=== PATIENT | female | born 1985 ===

== ENCOUNTER 2016-11-29 19:54 | Emergency (ER) | payer SELFPAY ==
[2016-11-29 19:54] VITALS: BMI 33.0
[2016-11-29] MEDS ORDERED: Dexamethasone 10 MG in Sodium Chloride 0.9% 50 ML IV ONE (21:44)
[2016-11-29] MEDS ORDERED: Sodium Chloride 0.9% 1,000 ML IV STA (21:44)
--- NOTE | 2016-11-29 21:51 | ED PDOC ---
HPI: CCC, URI, Sore Throat Time Seen by Provider: 11/29/16 21:38 Chief Complaint (Nursing): ENT Problem Chief Complaint (Provider): Sore Throat History Per: Patient History/Exam Limitations: no limitations Have you had recent travel within the past 21 days to any of the following countries: [place], [place], [place] or [place]?: No Onset/Duration Of Symptoms: Days (x3 1/2 days) Current Symptoms Are (Timing): Still Present Location Of Pain: Throat Associated Symptoms: Sore Throat, Neck Pain. denies: Fever, Cough Severity: Moderate Additional Complaint(s): Wander Wei is a 31 year old female, with no pertinent past medical history, who presents to the emergency department for the evaluation of a sore throat, that the patient has been experiencing for the past x3 1/2 days. Pain is described as a burning sensation that radiates throughout her throat. Associated difficulty swallowing with eating and drinking is reportedly also present. Denies a cough or fever. PMD: none specified Past Medical History Reviewed: Historical Data, Nursing Documentation, Vital Signs Vital Signs: Last Vital Signs Temp 98.1 F 11/29/16 21:08 Pulse 86 11/29/16 21:08 Resp 18 11/29/16 21:08 BP 120/71 11/29/16 21:08 Pulse Ox 100 11/29/16 22:02 - Medical History PMH: Asthma - Family History Family History: States: Unknown Family Hx - Social History Current smoker - smoking cessation education provided: Yes (<10 cigarettes daily ) Alcohol: None Drugs: Denies - Home Medications Home Medications: Ambulatory Orders Medication Instructions Recorded Clindamycin [Cleocin] 1 tab PO QID #40 cap 11/30/16 Ibuprofen [Motrin] 600 mg PO Q8 PRN #21 tab 11/30/16 - Allergies Allergies/Adverse Reactions: Allergies Allergy/AdvReac Type Severity Reaction Status Date / Time Penicillins Allergy RASH Verified 08/15/16 20:39 Review of Systems Constitutional: Negative for: Fever ENT: Positive for: Throat Pain (difficulty swallowing food/liquid) Respiratory: Negative for: Cough Physical Exam - Reviewed Nursing Documentation Reviewed: Yes Vital Signs Reviewed: Yes - Physical Exam Appears: Positive for: Non-toxic, No Acute Distress Skin: Positive for: Normal Color, Warm, Dry ENT: Positive for: Normal ENT Inspection, Pharyngeal Erythema (diffuse erythema of posterior pharynx). Negative for: Tonsillar Exudate, Tonsillar Swelling Neurologic/Psych: Positive for: Alert, Oriented - ECG O2 Sat by Pulse Oximetry: 100 (RA) Pulse Ox Interpretation: Normal Medical Decision Making Medical Decision Makin:38 Initial Impression: throat infection Initial Plan: * Tift * Rapid Strep Group A Antigen * Urine * Decadron Inj 10mg IV * Sodium Chloride 0.9% 1,000ml IV at 1,000mls/hr * Toradol 15mg IVP * Reevaluation Scribe Attestation: Documented by Guero Echeverria, training under Karolina Sue, acting as a scribe for Yu Machado PA-C. Provider Scribe Attestation: All medical record entries made by the Scribe were at my direction and personally dictated by me. I have reviewed the chart and agree that the record accurately reflects my personal performance of the history, physical exam, medical decision making, and the department course for this patient. I have also personally directed, reviewed, and agree with the discharge instructions and disposition. Disposition - Clinical Impression Clinical Impression: Sore throat - Patient ED Disposition Is Patient to be Admitted: Transfer of Care - Disposition Disposition: Transfer of Care Disposition Time: 00:00 Condition: FAIR Prescriptions: Clindamycin [Cleocin] 1 tab PO QID #40 cap Ibuprofen [Motrin] 600 mg PO Q8 PRN #21 tab PRN Reason: Sore Throat Forms: [facility] ED School/Work Excuse Patient Signed Over To: Annmarie Parmar Handoff Comments: pending strep/mono
[2016-11-30 01:18] VITALS: BP 124/69; PULSE 79; RESP 15; TEMP 98.3; O2SAT 99
== END 2016-11-30 00:15 | disposition home or self-care (01) ==
LOC: H.ER 19:54
DX: A49.1 Streptococcal infection, unspecified site (principal)
CPT/HCPCS: 81025; 86308; 87430; 96374; 99284; J1100; J1885

== ENCOUNTER 2017-01-13 08:02 | Emergency (ER) | payer MEDICAID ==
[2017-01-13 08:02] VITALS: BMI 33.0
[2017-01-13] MEDS ORDERED: Sodium Chloride 0.9% 1,000 ML IV SCH (09:00)
[2017-01-13 09:09] LABS: BASO # 0.1 K/uL (0.0-0.2); BASO % 0.9 % (0.0-2.0); EOS # 0.1 K/uL (0.0-0.7); EOS % 1.5 % (0.0-4.0); HEMATOCRIT 46.5 % (34.0-47.0); LYMPH # 1.9 K/uL (1.0-4.3); MEAN CELL VOLUME 90.2 fl (81.0-99.0); MEAN CORPUSCULAR HEMOGLOBIN 31.6 pg (27.0-31.0); MEAN PLATELET VOLUME 7.1 fl (7.2-11.7); MONO # 0.5 K/uL (0.0-0.8); MONO % 6.9 % (0.0-10.0); NEUT # 4.1 K/uL (1.8-7.0); NEUT % 61.7 % (50.0-75.0); NRBC % 0.1 % (0.0-0.0); RED CELL DISTRIBUTION WIDTH 12.9 % (11.5-14.5); WHITE BLOOD COUNT 6.7 K/uL (4.8-10.8)
[2017-01-13 09:21] LABS: ALB/GLOB RATIO 1.4 (1.0-2.1); ALKALINE PHOSPHATASE 52 U/L (38-126); ALT/SGPT 38 U/L (9-52); AST/SGOT 23 U/L (14-36); BILIRUBIN,TOTAL 0.5 mg/dl (0.2-1.3); BLOOD UREA NITROGEN 13 mg/dl (7-17); CALCIUM 9.5 mg/dL (8.4-10.2); CARBON DIOXIDE 24 mmol/L (22-30); CHLORIDE 105 mmol/L (98-107); GFR AFRICAN-AMERICAN > 60; GLUCOSE,RANDOM 89 mg/dL (65-105); POTASSIUM 4.4 MMOL/L (3.6-5.0); SODIUM 141 mmol/l (132-148); TOTAL PROTEIN 7.6 G/DL (6.3-8.2)
--- NOTE | 2017-01-13 09:34 | ED PDOC ---
HPI: General Adult Time Seen by Provider: 01/13/17 08:48 Chief Complaint (Nursing): Dizziness/Lightheaded Chief Complaint (Provider): Dizziness/Lightheaded History Per: Patient Additional Complaint(s): 31 y/o female presents to the emergency department with a complaint of dizziness described as room spinning that worsens while laying down and eye movement since this morning. Associated with nausea. Patient states she had experienced similar symptoms in the past but nothing excessive compared to this morning. Denies fever, vomiting, and ingestion of medications for the relief of symptoms. PMD: None Past Medical History Reviewed: Historical Data, Nursing Documentation, Vital Signs Vital Signs: Last Vital Signs Temp 98.3 F 01/13/17 08:04 Pulse 82 01/13/17 09:39 Resp 18 01/13/17 09:39 BP 121/61 01/13/17 09:39 Pulse Ox 99 01/13/17 10:59 - Medical History PMH: Asthma - Family History Family History: States: Stroke, Diabetes, Hypertension, Other Other Family History: Heart attack - Social History Current smoker - smoking cessation education provided: Yes Alcohol: None Drugs: Denies - Home Medications Home Medications: Ambulatory Orders Medication Instructions Recorded Clindamycin [Cleocin] 1 tab PO QID #40 cap 11/30/16 Ibuprofen [Motrin] 600 mg PO Q8 PRN #21 tab 11/30/16 Meclizine [Meclizine*] 1 tab PO Q6 PRN #30 tab 01/13/17 - Allergies Allergies/Adverse Reactions: Allergies Allergy/AdvReac Type Severity Reaction Status Date / Time Penicillins Allergy RASH Verified 08/15/16 20:39 Review of Systems ROS Statement: Except As Marked, All Systems Reviewed And Found Negative Constitutional: Negative for: Fever Gastrointestinal: Positive for: Nausea. Negative for: Vomiting Neurological: Positive for: Dizziness Physical Exam - Reviewed Nursing Documentation Reviewed: Yes Vital Signs Reviewed: Yes - Physical Exam Appears: Positive for: Non-toxic, No Acute Distress Head Exam: Positive for: ATRAUMATIC, NORMOCEPHALIC Skin: Positive for: Normal Color, Warm, Dry Eye Exam: Positive for: PERRL (Equal and reactive to light), Nystagmus ( positive fatigue nystagmus), Other (Dizziness worsens with eye movement) Extremity: Positive for: Normal ROM (Nuerosensory grossly intact). Negative for : Other (Negative pronator drift) Neurologic/Psych: Positive for: Alert, Oriented - Laboratory Results Result Diagrams: 01/13/17 09:04 01/13/17 09:04 - ECG O2 Sat by Pulse Oximetry: 99 (RA) Pulse Ox Interpretation: Normal Medical Decision Making Medical Decision Making: Time: 8:47 Initial impression: Vertigo Initial plan: --ED Urine (POC) --Antivert 50 mg PO --Sodium Chloride 1,000 ml IV 1,000 mls/hr --IV Insertion --Urinalysis Stat --Revaluation Time: 10:53 --Pt feels better and looks well. Will d/c home. Upon provider reevaluation patient is feeling better, is medically stable, and requires no further treatment in the ED at this time. Patient will be discharged home with Rx for Meclizine. Counseling was provided and all questions were answered regarding diagnosis and need for follow up with Dr. Yusef Bates MD. There is agreement to discharge plan. Return if symptoms persist or worsen. Clinical Impression: Vertigo Scribe Attestation: Documented by Ruth Mac, acting as a scribe for Abrahan Ramírez MD. Provider Scribe Attestation: All medical record entries made by the Scribe were at my direction and personally dictated by me. I have reviewed the chart and agree that the record accurately reflects my personal performance of the history, physical exam, medical decision making, and the department course for this patient. I have also personally directed, reviewed, and agree with the discharge instructions and disposition. Disposition - Clinical Impression Clinical Impression: Vertigo - Patient ED Disposition Is Patient to be Admitted: No Counseled Patient/Family Regarding: Studies Performed, Diagnosis, Need For Followup - Disposition Referrals: Yusef Bates MD [Staff Provider] - Disposition: Routine/Home Disposition Time: 10:53 Condition: IMPROVED Additional Instructions: Ms. Wei, thank you for letting us take care of you today. Return to the ER if your symptoms worsen, or if any problems. Take the medication (meclizine) listed below as prescribed. We want to make sure that you are getting better. Please call the phone number listed below and make a follow up appointment with Dr. Bates. There are maneuvers you can do with your head to improve the spinning. If you Google "vertigo head maneuvers" you can try this at home and many patients state that it helps a lot. Prescriptions: Meclizine [Meclizine*] 1 tab PO Q6 PRN #30 tab PRN Reason: Dizziness Instructions: Vertigo (ED), Benign Paroxysmal Positional Vertigo (ED) Forms: [facility] (E[place]ian) Print Language: BRITISH
[2017-01-13 09:39] VITALS: RESP 18
[2017-01-13 09:41] VITALS: O2SAT 99
[2017-01-13 10:30] LABS: RBC URINE 2 /hpf (0-3); URINE BILIRUBIN NEGATIVE (NEGATIVE); URINE BLOOD SMALL (NEGATIVE); URINE COLOR YELLOW (YELLOW); URINE GLUCOSE (UA) NEG (Normal); URINE KETONE NEGATIVE (NEGATIVE); URINE LEUKOCYTE ESTERASE NEG Leu/uL (Negative); URINE PROTEIN NEGATIVE (NEGATIVE); URINE UROBILINOGEN 0.2-1.0 mg/dL (0.2-1.0); WBC URINE 1 /hpf (0-5)
[2017-01-13 11:23] VITALS: BP 107/62; PULSE 84; TEMP 98.1
== END 2017-01-13 11:22 | disposition home or self-care (01) ==
LOC: H.ER 08:02
DX: R42 Dizziness and giddiness (principal); R11.0 Nausea
CPT/HCPCS: 80053; 81003; 83735; 85025; 96360; 99283; J7040

== ENCOUNTER 2017-02-27 23:01 | Emergency (ER) | payer SELFPAY ==
[2017-02-27 23:02] VITALS: BMI 33.0
[2017-02-27 23:09] VITALS: BP 113/68; RESP 18; TEMP 97.8; O2SAT 99
--- NOTE | 2017-02-27 23:17 | ED PDOC ---
HPI: CCC, URI, Sore Throat Time Seen by Provider: 02/27/17 23:15 Chief Complaint (Nursing): ENT Problem Chief Complaint (Provider): left ear pain History Per: Patient (31 y/o female here with left ear pain ongoing x 2 days. Notes pain in ear worsens with touch and swallowing. Denies any dental pain. Attempted use of motrin and tylenol without relief of pain.) Past Medical History Reviewed: Historical Data, Nursing Documentation, Vital Signs Vital Signs: Last Vital Signs Temp 97.8 F 02/27/17 23:06 Pulse 94 H 02/27/17 23:06 Resp 18 02/27/17 23:06 BP 113/68 02/27/17 23:06 Pulse Ox 99 02/27/17 23:06 - Medical History PMH: Asthma - Family History Family History: States: Unknown Family Hx, Stroke, Diabetes, Hypertension - Home Medications Home Medications: Ambulatory Orders Medication Instructions Recorded Clindamycin [Cleocin] 1 tab PO QID #40 cap 11/30/16 Ibuprofen [Motrin] 600 mg PO Q8 PRN #21 tab 11/30/16 Meclizine [Meclizine*] 1 tab PO Q6 PRN #30 tab 01/13/17 Naproxen 1 tab PO BID PRN #14 tab 02/27/17 traMADol [Ultram] 50 mg PO Q8 PRN #6 tab 02/27/17 - Allergies Allergies/Adverse Reactions: Allergies Allergy/AdvReac Type Severity Reaction Status Date / Time Penicillins Allergy RASH Verified 08/15/16 20:39 Review of Systems ROS Statement: Except As Marked, All Systems Reviewed And Found Negative ENT: Positive for: Ear Pain Physical Exam - Reviewed Nursing Documentation Reviewed: Yes Vital Signs Reviewed: Yes - Physical Exam Appears: Positive for: Well, Non-toxic, No Acute Distress Head Exam: Positive for: ATRAUMATIC, NORMAL INSPECTION, NORMOCEPHALIC Skin: Positive for: Normal Color, Warm, DRY Eye Exam: Positive for: EOMI, Normal appearance, PERRL ENT: Negative for: Normal ENT Inspection ((+) tragal tenderness. (+) tenderness elicited with touching ear canal with otoscope. No exudate/erythema of canal. TM wnl.) Neck: Positive for: Normal, Painless ROM Cardiovascular/Chest: Positive for: Regular Rate, Rhythm Respiratory: Positive for: CNT, Normal Breath Sounds Gastrointestinal/Abdominal: Positive for: Normal Exam, Bowel Sounds, Soft Back: Positive for: Normal Inspection Extremity: Positive for: Normal ROM Neurologic/Psych: Positive for: Alert, Oriented - ECG O2 Sat by Pulse Oximetry: 99 - Progress ED Course And Treament: Tramadol 50 mg x 1 dose Disposition - Clinical Impression Clinical Impression: Otitis externa - Patient ED Disposition Is Patient to be Admitted: No - Disposition Referrals: Yusef Bates MD [Staff Provider] - Disposition: Routine/Home Disposition Time: 23:18 Condition: FAIR Prescriptions: Naproxen 1 tab PO BID PRN #14 tab PRN Reason: Pain, Severe (8-10) traMADol [Ultram] 50 mg PO Q8 PRN #6 tab PRN Reason: Pain, Severe (8-10) Instructions: Otitis Externa (ED) Forms: [facility] ED School/Work Excuse
[2017-02-27 23:34] VITALS: PULSE 84
== END 2017-02-27 23:33 | disposition home or self-care (01) ==
LOC: H.ER 23:01
DX: H60.92 Unspecified otitis externa, left ear (principal); J45.909 Unspecified asthma, uncomplicated; Z88.0 Allergy status to penicillin

== ENCOUNTER 2017-11-01 18:03 | Emergency (ER) | payer MEDICAID, OTHER ==
[2017-11-01 18:03] VITALS: BMI 33.0
[2017-11-01 18:10] VITALS: BP 117/71; PULSE 97; RESP 16; TEMP 97; O2SAT 97
--- NOTE | 2017-11-01 18:47 | ED PDOC ---
HPI: Head Injury Time Seen by Provider: 11/01/17 18:23 Chief Complaint (Nursing): Dizziness/Lightheaded Chief Complaint (Provider): Head injury History Per: Patient History/Exam Limitations: no limitations Injury Occurred (Timing): Today @ (3:30 AM) Patient States: Struck With Object Loss Of Consciousness: No Additional Complaint(s): 32yo female, presents to ED for evaluation of a head injury after she was struck on her head with a metal beam at work. She denies any loss of consciousness but states she felt dazed. She currently reports a headache, and blurry vision in her right eye. She denies any weakness, changes in affect. No other complaints. Past Medical History Reviewed: Historical Data, Nursing Documentation, Vital Signs Vital Signs: Last Vital Signs Temp 97 F L 11/01/17 18:07 Pulse 97 H 11/01/17 18:07 Resp 16 11/01/17 18:07 BP 117/71 11/01/17 18:07 Pulse Ox 97 11/01/17 18:07 - Medical History PMH: Asthma - Surgical History Surgical History: No Surg Hx - Family History Family History: States: Stroke, Diabetes, Hypertension - Home Medications Home Medications: Ambulatory Orders Medication Instructions Recorded Clindamycin [Cleocin] 1 tab PO QID #40 cap 11/30/16 Ibuprofen [Motrin] 600 mg PO Q8 PRN #21 tab 11/30/16 Meclizine [Meclizine*] 1 tab PO Q6 PRN #30 tab 01/13/17 Naproxen 1 tab PO BID PRN #14 tab 02/27/17 traMADol [Ultram] 50 mg PO Q8 PRN #6 tab 02/27/17 Naproxen [Naprosyn] 500 mg PO Q12H #20 tab 11/01/17 - Allergies Allergies/Adverse Reactions: Allergies Allergy/AdvReac Type Severity Reaction Status Date / Time Penicillins Allergy RASH Verified 11/01/17 18:06 Review of Systems ROS Statement: Except As Marked, All Systems Reviewed And Found Negative Eyes: Positive for: Vision Change (right eye) Gastrointestinal: Positive for: Nausea Neurological: Positive for: Headache, Dizziness Physical Exam - Reviewed Nursing Documentation Reviewed: Yes Vital Signs Reviewed: Yes - Physical Exam Appears: Positive for: Non-toxic, No Acute Distress Head Exam: Positive for: ATRAUMATIC (tenderness noted to right frontal area, no palpable fracture), NORMAL INSPECTION, NORMOCEPHALIC Skin: Positive for: Normal Color Eye Exam: Positive for: EOMI, PERRL, Other (normal fundi) Neck: Positive for: Painless ROM, Supple Cardiovascular/Chest: Positive for: Regular Rate, Rhythm Respiratory: Positive for: Normal Breath Sounds. Negative for: Respiratory Distress - ECG O2 Sat by Pulse Oximetry: 97 (RA) Pulse Ox Interpretation: Normal Medical Decision Making Medical Decision Making: Impression: Head injury Plan: -- CT Head w/o contrast Scribe Attestation: Documented by Destini Day acting as a scribe for Gabriel Jackson MD Provider Scribe Attestation: All medical record entries made by the Scribe were at my direction and personally dictated by me. I have reviewed the chart and agree that the record accurately reflects my personal performance of the history, physical exam, medical decision making, and the department course for this patient. I have also personally directed, reviewed, and agree with the discharge instructions and disposition. Disposition - Clinical Impression Clinical Impression: Head injury, Mild concussion - Patient ED Disposition Is Patient to be Admitted: No Counseled Patient/Family Regarding: Studies Performed, Diagnosis, Need For Followup, Rx Given - Disposition Referrals: Robbie Hayes MD [Medical Doctor] - Disposition: Routine/Home Disposition Time: 19:41 Condition: FAIR Prescriptions: Naproxen [Naprosyn] 500 mg PO Q12H #20 tab Instructions: Concussion in Adults, Closed Head Injury Forms: [facility] (German)
--- NOTE | 2017-11-01 19:39 | CT ---
EXAM: CT Head Without Intravenous Contrast EXAM DATE/TIME: 11/01/2017 6:35 PM CLINICAL HISTORY: 32 years old, female; Injury or trauma; Injury Patients states: Walked into a pole, hit forehead; Work related; Initial encounter; Concussion / head injury; Consciousness not specified TECHNIQUE: Axial computed tomography images of the head/brain without intravenous contrast. All CT scans at this facility use one or more dose reduction techniques, viz.: automated exposure control; ma/kV adjustment per patient size (including targeted exams where dose is matched to indication; i.e. head); or iterative reconstruction technique. Coronal and sagittal reformatted images were created and reviewed. COMPARISON: CT - HEAD W/O CONTRAST 2016-07-27 15:56 FINDINGS: Brain: Ventricles are normal in size and configuration. There is no midline shift. There are no intra-axial or extra-axial mass lesions or areas of hemorrhage. There are no abnormal fluid collections. Ramirez-white differentiation is maintained. Ventricles: See above. Bones: Cranial vault is intact. Soft tissues: unremarkable Sinuses: There is no acute sinusitis. Mastoid air cells: Orbital contents are unremarkable. IMPRESSION: No acute intracranial abnormality
[2017-11-01] MEDS ORDERED: Naproxen 500 MG TAB PO STA (19:49)
[2017-11-01] MEDS ORDERED: Naproxen 500 MG TAB PO ONE (19:52)
== END 2017-11-01 20:02 | disposition home or self-care (01) ==
LOC: H.ER 18:03
DX: S06.0X0A Concussion without loss of consciousness, initial encounter (principal); S09.90XA Unspecified injury of head, initial encounter; J45.909 Unspecified asthma, uncomplicated; Z88.0 Allergy status to penicillin